=== PATIENT | female | born 1995 | race Caucasian/White ===

== ENCOUNTER → 2025-04-23 16:25 | Outpatient (REF) | payer BC, SELFPAY | LOC: HWRAD 16:25 | PROVIDERS: ATTENDING PHYSICIAN Internal Medicine | DX: M79.672 Pain in left foot (principal) | CPT/HCPCS: 73630 ==

== ENCOUNTER 2025-04-29 12:35 | Emergency (ER) | payer BC, SELFPAY ==
[2025-04-29 12:38] VITALS: BP 180/90
--- NOTE | 2025-04-29 12:49 | ED.GENMED ---
History of Present Illness
General
Chief Complaint: Allergic Reaction
Time Seen by Provider: 04/29/25 12:49
History of Present Illness
History of Present Illness:
TIME OF INITIAL ENCOUNTER: 12:50 PM
HPI: The patient presents due to concern for an allergic reaction. She was placed on methylprednisolone yesterday and started to feel unwell last night along with some itching and took an additional 2 doses of the methylprednisolone this morning
and developed a diffuse rash. She now has increased back pain, some chest pain. She was placed on methylprednisolone for left great toe pain that did not initially respond to indomethacin. She was placed on indomethacin for the possibility of
gout. She reports having 2 x-rays that were relatively unremarkable. Overall her toe pain was getting a little better before the methylprednisolone was started and she was also placed in a boot. She did try some Shaylee or Zyrtec last night.
EXAM:
GENERAL: Well appearing in no distress
HEENT: Moist oral mucosa, no uvular edema, posterior oropharynx widely patent
CARDIOVASCULAR: No murmurs, normal heart rate, regular rhythm, No chest wall tenderness
PULMONARY: No respiratory distress, breath sounds are clear and equal
ABDOMEN: Soft with no peritoneal signs, no tenderness
NEUROLOGIC: Excellent strength all extremities, no coordination deficits
PSYCHIATRIC: Appropriate mental status, normal insight and judgement
EXTREMITIES: There is some minimal tenderness to the plantar aspect of the distal first metatarsal.
SKIN: Some patchy erythema noted to the upper torso
NUMBER AND COMPLEXITY OF PROBLEMS ADDRESSED AT THE ENCOUNTER
� Chronic conditions affecting care: Anxiety
� Acute Exacerbation and/or Progression of Chronic Illness: This is an acute problem
� Differential Diagnosis includes: Allergic reaction, gout,
AMOUNT AND/OR COMPLEXITY OF DATA TO BE REVIEWED AND ANALYZED
� I performed an independent evaluation of and my interpretation is:
EKG: Sinus 90, nonspecific ST abnormality with no old EKG to compare
CT:
X-rays:
Laboratory Studies: White count slightly high 12.1 (patient on steroids), chemistries unremarkable, uric acid normal.
Other:
� Review of other/old records: I reviewed records, the patient was seen here with a migraine type of headache in 2022 and blood work at that time was unremarkable.
� Clinical information was obtained by an independent historian: None needed
� Prescriptions/Medications Considered but not given:
� Further testing considered but not performed:
RISK OF COMPLICATIONS AND/OR MORBIDITY OR MORTALITY OF PATIENT MANAGEMENT
� Social determinants of health affecting care: Lives at home
� Discussion with other providers:
� Escalation of care including admission/observation vs risk of discharge considered: Patient's blood work is relatively unremarkable. Minimal leukocytosis likely related to being on steroids recently. She was given treatment
for an allergic reaction with Benadryl, Pepcid, and we also tried a DuoNeb as she had some vague chest discomfort in the setting of allergic reaction. However she was never wheezing. Posterior oropharynx is widely patent.
ANY OTHER UPDATES:
2:45 PM: The patient reports no significant improvement with medications given however the patient appears fairly comfortable.
4 PM: Troponin negative. Although she states she has ongoing pain, she appears fairly comfortable. She states she does have back pain. She does not want to try narcotic. She has already been on NSAIDs. She has not tried Salonpas/lidocaine
patches and she might try [id number] topical pain relief.
Phy Exam
Physical Exam
Physical Exam:
See HPI
Course
Orders/Labs/Results
Orders:
Orders
04/29/25 12:59
0.9% Sodium Chloride 1000 ml [Nss] 1,000 ml IV BOLUS
Diphenhydramine [Benadryl] 25 mg IV NOW STA
Famotidine [Pepcid] 20 mg IV NOW STA
Ipratropium/Albuterol Sulfate [Duoneb] 3 ml INH R NOW STA
Ketorolac [Toradol] 15 mg IV NOW STA
04/29/25 13:08
Complete Blood Count/With Diff Urgent
Comprehensive Metabolic Panel Urgent
Uric Acid Urgent
04/29/25 14:18
Electrocardiogram (*1) Urgent
Reason for Study: Chest Pain
EKG- Treatment ONCE
04/29/25 14:31
Troponin I Urgent
Abnormal Lab Results
04/29/25
13:08
WBC 12.1 H 10^3/uL
(4.8-10.8)
MPV 10.5 H fL
(7.4-10.4)
Absolute Neuts (auto) 9.9 H 10^3/uL
(1.4-6.5)
Absolute Monos (auto) 0.9 H 10^3/uL
(0.1-0.6)
Neutrophils % 81.2 H %
(42.2-75.2)
Lymphocytes % 10.7 L %
(20.5-51.1)
Glucose 118 H mg/dl
(70-99)
Total Protein 8.5 H g/dl
(6.3-8.2)
Albumin 5.1 H g/dl
(3.5-5.0)
04/29/25 13:08
04/29/25 13:08
Vital Signs
Initial and Last Documented VS:
Initial Vital Signs
Temp Pulse Resp BP Pulse Ox
37.1 C 79 16 180/90 98
04/29/25 12:38 04/29/25 12:38 04/29/25 12:38 04/29/25 12:38 04/29/25 12:38
Last Documented Vital Signs
Temp Pulse Resp BP Pulse Ox
37.1 C 103 24 148/79 99
04/29/25 12:38 04/29/25 15:14 04/29/25 15:14 04/29/25 15:14 04/29/25 12:56
*Critical Care Note
Total Time (30-74mins, 75-104mins- exclusive of procedures): Not Applicable
ED Attending Note
-
Portions of this chart may have been created with voice recognition software.� Occasional wrong word or��sound alike� substitutions may have occurred due to the inherent limitations of voice recognition software.
Discharge Plan
Departure
Referrals:
Bala Orosco CRNP [Family Provider]
Interventions
Interventions:
*Risk Screen - Suicide Last Done: 04/29/25 12:38
*General Assessment Last Done: 04/29/25 13:30
*Neglect/Abuse Screening Last Done: 04/29/25 12:38
*ED- Fall Risk Assessment Last Done: 04/29/25 13:30
*ED COVID-19 Vaccine History Last Done: 04/29/25 13:30
ED- Cardiac Assessment Last Done: 04/29/25 13:31
ED- Pulmonary Assessment Last Done: 04/29/25 12:59
ED-Skin Assessment Last Done: 04/29/25 13:00
Discharge Date and Time
Discharge Date/Time: 04/29/25 13:52
Print Language: HUNGARIAN
[2025-04-29] MEDS: NSS 1000 IV (13:11)
[2025-04-29] MEDS: BENADRYL 25 MG IV (13:14)
[2025-04-29] MEDS: PEPCID 20 MG IV (13:14)
[2025-04-29] MEDS: TORADOL 15 MG IV (13:17)
[2025-04-29] MEDS: DUONEB 3 ML INH (13:18)
[2025-04-29 13:21] LABS: % Basophils 0.2 % (0-2); % Eosinophils 0.1 % (0-6); % Immature Granulocytes 0.2 % (0-0.5); % Lymphocytes 10.7 % (20.5-51.1); % Monocytes 7.6 % (1.7-9.3); % Neutrophils 81.2 % (42.2-75.2); Absolute Lymphocytes 1.3 10^3/uL (1.2-3.4); Absolute Monocytes 0.9 10^3/uL (0.1-0.6); Absolute Neutrophils 9.9 10^3/uL (1.4-6.5); Hematocrit 43.3 % (37.0-47.0); Hemoglobin 14.9 g/dL (12.0-16.0); Mean Corp Hgb Conc. 34.4 g/dL (33.0-37.0); Mean Corpuscular Volume 84.4 fL (81.0-99.0); Mean Platelet Volume 10.5 fL (7.4-10.4); Nucleated Red Blood Cells % 0 %; Platelet Count 243 10^3/uL (130-400); Red Blood Cell Count 5.13 10^6/uL (4.20-5.40); Red Cell Dist. Width 11.9 % (11.5-14.5); White Blood Cell Count 12.1 10^3/uL (4.8-10.8)
[2025-04-29 13:29] VITALS: BP 134/69
[2025-04-29 13:48] LABS: ALT (SGPT) 17 U/L (0-35); AST (SGOT) 19 U/L (14-36); Albumin 5.1 g/dl (3.5-5.0); Alkaline Phosphatase 56 U/L (38-126); Blood Urea Nitrogen 12 mg/dl (7-17); Calcium 9.4 mg/dl (8.4-10.2); Carbon Dioxide 27 mmol/L (22-30); Chloride 107 mmol/L (98-107); Glucose 118 mg/dl (70-99); Potassium 3.7 mmol/L (3.5-5.1); Sodium 144 mmol/L (135-145); Total Bilirubin 0.3 mg/dl (0.2-1.3); Total Protein 8.5 g/dl (6.3-8.2); Uric Acid 4.2 mg/dl (2.5-6.2); eGFR > 60.00
[2025-04-29 14:10] VITALS: BP 141/82
[2025-04-29 15:14] VITALS: BP 148/79
[2025-04-29 15:30] LABS: Troponin I < 0.012 ng/ml
[2025-04-29 17:00] VITALS: BP 116/81
== END 2025-04-29 17:48 | disposition home or self-care (01) ==
LOC: EMR 12:35
PROVIDERS: EMERGENCY PHYSICIAN Emergency Medicine
DX: T78.40XA Allergy, unspecified, initial encounter (principal); Y92.9 Unspecified place or not applicable
CPT/HCPCS: 99283; 94640; 96374; 96375; 96361; 80053; 84484; 84550; 85025; 93005

== ENCOUNTER → 2025-05-19 15:14 | Outpatient (REF) | payer BC, SELFPAY | LOC: HWRAD 15:14 | PROVIDERS: ATTENDING PHYSICIAN Student in an Organized Health Care Education/Training Program | DX: R07.9 Chest pain, unspecified (principal); M54.50 Low back pain, unspecified | CPT/HCPCS: 71046; 72100; 72202 ==